=== PATIENT | female | born 1940 | race Caucasian/White ===

== ENCOUNTER → 2019-01-16 | Outpatient (CLI) | payer OTHER ==
[~2019-01-16] MED LIST: ACET325 PO; AMLO5 PO; ASPI325 PO; ATOR20 PO; CARV3.125 PO; CEFD300 PO; DIGO.125 PO; DOCU100 PO; ELIQUIS2.5 MG PO; ERGO400 PO; FENO145 PO; FISH1000 PO; FLUO10 PO; FURO20 PO; FURO40 PO; GABA300 PO; HYDCHL25 PO; HYDURE500 PO; Hydrochlorothia25 MG PO; INSULANPEN SC; LANOXIN250 MCG PO; LEVSOD125 PO; LISI20 PO; LISI5 PO; LORA.5 PO; METO100ER PO; METO50 PO; NAMZARIC 28 MG1 EACH PO; NYST100P TOP; Norco 5-325 Ta1 EACH PO; ONDA4ODT MM; OXYC5 PO; POTCHL20ER PO; PRAV20 PO; SITA100T2 PO; Super Calcium600 MG PO; THERA1 EACH PO; TOCO1000 PO; TRAZ100 PO; WARF3 PO; WARF5 PO; Woman's Laxative5 MG PO
[2019-01-16 10:36] LABS: Bilirubin, Urine Neg (Neg); Blood, Urine Neg (Neg); Glucose Qualitative, Urine Neg (Neg); Ketones, Urine Neg (Neg); Leukocyte Esterase, Urine Neg (Neg); Nitrite, Urine Neg (Neg); Protein, Urine 2+ (Neg); Urobilinogen, Urine NORM (Normal)
[2019-01-16 10:41] LABS: Appearance, Urine Clear (Clear); Color, Urine Yellow (P-Yellow)
[2019-01-16 10:42] LABS: Bacteria Mod /hpf; Mucus Light (0-Heavy); Red Blood Cells, Urine Not Seen /hpf (0-2); Squamous Epithelial Cells Few /hpf (Few)
== END | disposition home or self-care (01) ==
LOC: LAB SHORT 10:22 → LAB 10:22
PROVIDERS: Nurse Practitioner Family
DX: R82.90 Unspecified abnormal findings in urine (principal)
CPT/HCPCS: 81001; 87077; 87086; 87186

== ENCOUNTER → 2019-03-02 | Outpatient (CLI) | payer OTHER ==
[2019-03-02 14:41] LABS: BASOPHILS PERCENT AUTO 1 % (0-2); EOSINOPHILS ABSOLUTE AUTO 0.04 K/mm3 (0.00-0.68); EOSINOPHILS PERCENT AUTO 0 % (0-6); Hematocrit 44.7 % (33.0-51.0); Hemoglobin 14.1 g/dL (11.5-16.0); IMMATURE GRAN ABSOLUTE AUTO 0.26 K/mm3 (0.00-0.10); IMMATURE GRAN PERCENT AUTO 2 % (0-1); LYMPHOCYTES ABSOLUTE AUTO 1.32 K/mm3 (0.84-5.20); LYMPHOCYTES PERCENT AUTO 7 % (21-46); MONOCYTES PERCENT AUTO 4 % (4-13); Mean Corpuscular HGB 29.4 pg (26.0-34.0); Mean Corpuscular HGB Conc 31.5 g/dL (31.5-36.5); Mean Corpuscular Volume 93 fL (80-100); Mean Platelet Volume 11.1 fL (9.1-12.4); NEUTROPHILS ABSOLUTE AUTO 15.24 K/mm3 (1.96-9.15); NEUTROPHILS PERCENT AUTO 86 % (41-73); Platelet Count 583 K/mm3 (150-400); RDW Coefficient Variation 17.4 % (11.7-14.2); RDW Standard Deviation 58.4 fL (35.1-46.3); White Blood Cell Count 17.76 K/mm3 (4.00-11.30)
[2019-03-02 14:52] LABS: Albumin, Blood 2.9 g/dL (3.4-5.0); Albumin/Globulin Ratio 0.7 (0.8-1.8); Bilirubin, Total 0.9 mg/dL (0.1-1.0); Bun/Creatinine Ratio 16.9 (12.0-20.0); Calcium, Blood 8.6 mg/dL (8.5-10.1); Creatinine, Blood 1.24 mg/dL (0.40-1.00); Globulin, Blood 4.3 g/dL (2.2-4.0); Potassium, Blood 3.9 mmol/L (3.5-5.5); Total Protein, Blood 7.2 g/dL (6.4-8.2)
== END | disposition home or self-care (01) ==
LOC: LAB SHORT 14:37 → LAB EV 14:37
PROVIDERS: Family Medicine
DX: R42 Dizziness and giddiness (principal); R82.90 Unspecified abnormal findings in urine
CPT/HCPCS: 80053; 85025; 87086

== ENCOUNTER → 2019-03-05 | Outpatient (CLI) | payer OTHER ==
[2019-03-05 10:51] LABS: BASOPHILS ABSOLUTE AUTO 0.34 K/mm3 (0.00-0.23); BASOPHILS PERCENT AUTO 3 % (0-2); EOSINOPHILS ABSOLUTE AUTO 0.13 K/mm3 (0.00-0.68); EOSINOPHILS PERCENT AUTO 1 % (0-6); Hematocrit 45.6 % (33.0-51.0); Hemoglobin 14.3 g/dL (11.5-16.0); IMMATURE GRAN ABSOLUTE AUTO 0.19 K/mm3 (0.00-0.10); IMMATURE GRAN PERCENT AUTO 2 % (0-1); LYMPHOCYTES ABSOLUTE AUTO 1.19 K/mm3 (0.84-5.20); LYMPHOCYTES PERCENT AUTO 9 % (21-46); MONOCYTES ABSOLUTE AUTO 0.57 K/mm3 (0.16-1.47); MONOCYTES PERCENT AUTO 5 % (4-13); Mean Corpuscular HGB 29.1 pg (26.0-34.0); Mean Corpuscular HGB Conc 31.4 g/dL (31.5-36.5); Mean Corpuscular Volume 93 fL (80-100); Mean Platelet Volume 11.1 fL (9.1-12.4); NEUTROPHILS ABSOLUTE AUTO 10.25 K/mm3 (1.96-9.15); Platelet Count 582 K/mm3 (150-400); RDW Coefficient Variation 17.2 % (11.7-14.2); RDW Standard Deviation 57.4 fL (35.1-46.3); Red Blood Cell Count 4.92 M/mm3 (3.80-5.20); White Blood Cell Count 12.67 K/mm3 (4.00-11.30)
[2019-03-05 11:08] LABS: Albumin, Blood 2.9 g/dL (3.4-5.0); Albumin/Globulin Ratio 0.6 (0.8-1.8); Bilirubin, Total 0.6 mg/dL (0.1-1.0); Bun/Creatinine Ratio 19.8 (12.0-20.0); Calcium, Blood 8.6 mg/dL (8.5-10.1); Creatinine, Blood 1.06 mg/dL (0.40-1.00); Globulin, Blood 4.5 g/dL (2.2-4.0); Potassium, Blood 4.2 mmol/L (3.5-5.5); Total Protein, Blood 7.4 g/dL (6.4-8.2)
[2019-03-05 14:07] LABS: NEUTROPHILS PERCENT AUTO 81 % (41-73)
== END | disposition home or self-care (01) ==
LOC: LAB EV 10:41 → LAB SHORT 10:41
PROVIDERS: Physician Assistant
DX: R42 Dizziness and giddiness (principal); D72.829 Elevated white blood cell count, unspecified
CPT/HCPCS: 80053; 83880; 85025; 85060

== ENCOUNTER 2019-03-06 10:03 | Observation (INO) | payer OTHER ==
[~2019-03-06] VITALS: Ht 157.5 cm; Wt 71.1 kg
[~2019-03-06 10:03] MED LIST changes: -ACET325 PO; -CEFD300 PO; -ELIQUIS2.5 MG PO; -ERGO400 PO; -GABA300 PO; -HYDURE500 PO; -LEVSOD125 PO; -LORA.5 PO; -NAMZARIC 28 MG1 EACH PO; -OXYC5 PO; -THERA1 EACH PO
[2019-03-06] MEDS ORDERED: LEVSOD125 PO (10:21)
[2019-03-06] MEDS ORDERED: CEFD300 PO (10:25)
[2019-03-06 10:26] LABS: BASOPHILS ABSOLUTE AUTO 0.28 K/mm3 (0.00-0.23); BASOPHILS PERCENT AUTO 1 % (0-2); EOSINOPHILS ABSOLUTE AUTO 0.11 K/mm3 (0.00-0.68); EOSINOPHILS PERCENT AUTO 1 % (0-6); Hematocrit 45.4 % (33.0-51.0); Hemoglobin 14.1 g/dL (11.5-16.0); IMMATURE GRAN ABSOLUTE AUTO 0.25 K/mm3 (0.00-0.10); IMMATURE GRAN PERCENT AUTO 1 % (0-1); LYMPHOCYTES ABSOLUTE AUTO 1.28 K/mm3 (0.84-5.20); LYMPHOCYTES PERCENT AUTO 6 % (21-46); MONOCYTES ABSOLUTE AUTO 0.87 K/mm3 (0.16-1.47); MONOCYTES PERCENT AUTO 4 % (4-13); Mean Corpuscular HGB 28.7 pg (26.0-34.0); Mean Corpuscular HGB Conc 31.1 g/dL (31.5-36.5); Mean Corpuscular Volume 93 fL (80-100); Mean Platelet Volume 11.2 fL (9.1-12.4); NEUTROPHILS ABSOLUTE AUTO 17.58 K/mm3 (1.96-9.15); NEUTROPHILS PERCENT AUTO 86 % (41-73); Platelet Count 650 K/mm3 (150-400); RDW Coefficient Variation 17.2 % (11.7-14.2); RDW Standard Deviation 57.1 fL (35.1-46.3); Red Blood Cell Count 4.91 M/mm3 (3.80-5.20); White Blood Cell Count 20.37 K/mm3 (4.00-11.30)
[2019-03-06] MEDS ORDERED: HYDURE500 PO (10:26)
[2019-03-06] MEDS ORDERED: TRAZ100 PO (10:28)
[2019-03-06] MEDS ORDERED: GABA300 PO (10:28)
[2019-03-06] MEDS ORDERED: ELIQUIS2.5 MG PO (10:30)
[2019-03-06] MEDS ORDERED: NAMZARIC 28 MG1 EACH PO (10:30)
[2019-03-06 10:38] LABS: Alanine Aminotransfer (ALT/SGP 20 U/L (12-78); Albumin, Blood 2.9 g/dL (3.4-5.0); Albumin/Globulin Ratio 0.7 (0.8-1.8); Alk Phos 109 U/L (50-136); Anion Gap 4 mmol/L (6-16); Aspartate Aminotrans (AST/SGOT 27 U/L (12-37); Bilirubin, Total 0.8 mg/dL (0.1-1.0); Blood Urea Nitrogen 19 mg/dL (8-24); Bun/Creatinine Ratio 23.2 (12.0-20.0); CO2, Blood 28 mmol/L (21-32); Calcium, Blood 8.6 mg/dL (8.5-10.1); Chloride, Blood 107 mmol/L (98-108); Creatinine, Blood 0.82 mg/dL (0.40-1.00); Globulin, Blood 4.3 g/dL (2.2-4.0); Glomerular Filtration Rate >60 (60-); Glucose, Blood 135 mg/dL (70-99); Potassium, Blood 4.3 mmol/L (3.5-5.5); Sodium, Blood 139 mmol/L (136-145); Total Protein, Blood 7.2 g/dL (6.4-8.2)
[2019-03-06 10:53] LABS: Source, Urine Catheter
[2019-03-06 10:58] LABS: Bilirubin, Urine Neg (Neg); Blood, Urine 1+ (Neg); Glucose Qualitative, Urine Neg (Neg); Ketones, Urine Neg (Neg); Leukocyte Esterase, Urine Neg (Neg); Nitrite, Urine Neg (Neg); Protein, Urine 3+ (Neg); Specific Gravity, Urine 1.015 (1.003-1.022); Urobilinogen, Urine NORM (Normal); pH, Urine 6.5 (5.0-8.0)
[2019-03-06 11:15] LABS: Appearance, Urine Clear (Clear); Color, Urine Yellow (P-Yellow); Red Blood Cells, Urine 0-2 /hpf (0-2); White Blood Cells, Urine 0-2 /hpf (0-5)
[2019-03-06 11:16] LABS: Bacteria Few /hpf; Mucus Light (0-Heavy); Squamous Epithelial Cells Rare /hpf (Few)
[2019-03-06 11:19] LABS: Digoxin (Lanoxin) 1.58 ug/mL (0.80-2.00)
[2019-03-06] MEDS ORDERED: ERGO400 PO (13:56)
[2019-03-06] MEDS ORDERED: THERA1 EACH PO (13:56)
[2019-03-06] MEDS ORDERED: ACET325 PO (13:59)
--- NOTE | 2019-03-06 15:13 | NUR ---
Pt arrived to the room. She is alert, but not oriented completely. Oriented to person, and to the fact that she is in the hospital. Cannot give the day of the week, the date, nor any reason for why she is in the hospital, although she states that she has been here often. States very very painful on her right side. Hardened lump noted on the right flank, which she states is painful to even very soft touch. NO bruising noted. she is unable to roll on to her right side due to the pain. Incontinence of urine noted in attends; attends change and monty care done upon arrival from ED. She is otherwise pleasant, conversant, and in no apparent distress, without any dificulty breathing noted. Appears a little bit tearful.
--- NOTE | 2019-03-06 16:05 | NUR ---
The pt's bladder scan was 887. She was assisted to the bedside commode (she stated no urge no void), and voided 150 cc yellow urine.
[2019-03-06 18:16] LABS: Source, Urine Catheter
[2019-03-06 18:20] LABS: Bilirubin, Urine Neg (Neg); Blood, Urine Neg (Neg); Glucose Qualitative, Urine Neg (Neg); Ketones, Urine 1+ (Neg); Leukocyte Esterase, Urine Neg (Neg); Nitrite, Urine Neg (Neg); Protein, Urine 2+ (Neg); Specific Gravity, Urine 1.015 (1.003-1.022); Urobilinogen, Urine NORM (Normal)
--- NOTE | 2019-03-06 18:27 | NUR ---
family came in to visit stated that pt had a POLST and that she wanted to be DNR, they promised to bring in a copy of the POLST, called dr who agreed to change the code to DNR, also reported that after the bladder scan a straight cath was done that only yielded 100 cc, called in other RN to verify placement, tried to reposition pt and cath, no more urine, when dr was informed he stated that their was a cyst that the scanner could be mistaking for the bladder and recommended dc'ing the bladder scan order but to continue to monitor he in/out closely, family stayed and assisted pt with dinner then left promising to return with the polst. pt resting quietly in bed in low position, call light in reach, alarm and skds on, rm air, saline locked, will continue to monitor and treat until SBAR report supplied to assistant casino shift manager.
[2019-03-06 18:41] LABS: Appearance, Urine Clear (Clear); Color, Urine Yellow (P-Yellow)
[2019-03-06 18:43] LABS: Red Blood Cells, Urine 0-2 /hpf (0-2); White Blood Cells, Urine 0-2 /hpf (0-5)
[2019-03-06 18:44] LABS: Bacteria Few /hpf; Squamous Epithelial Cells Not Seen /hpf (Few)
--- NOTE | 2019-03-06 18:47 | NUR ---
due to possible false reading of a full bladder when scanning pt has dc'd the st cath and bladder scan order and just requested close monitoring of pt i/o's
[2019-03-07 04:21] LABS: BASOPHILS ABSOLUTE AUTO 0.26 K/mm3 (0.00-0.23); BASOPHILS PERCENT AUTO 1 % (0-2); EOSINOPHILS ABSOLUTE AUTO 0.03 K/mm3 (0.00-0.68); EOSINOPHILS PERCENT AUTO 0 % (0-6); Hematocrit 42.3 % (33.0-51.0); Hemoglobin 12.9 g/dL (11.5-16.0); IMMATURE GRAN ABSOLUTE AUTO 0.38 K/mm3 (0.00-0.10); IMMATURE GRAN PERCENT AUTO 2 % (0-1); LYMPHOCYTES ABSOLUTE AUTO 1.27 K/mm3 (0.84-5.20); LYMPHOCYTES PERCENT AUTO 6 % (21-46); MONOCYTES ABSOLUTE AUTO 1.12 K/mm3 (0.16-1.47); MONOCYTES PERCENT AUTO 5 % (4-13); Mean Corpuscular HGB 28.2 pg (26.0-34.0); Mean Corpuscular HGB Conc 30.5 g/dL (31.5-36.5); Mean Corpuscular Volume 93 fL (80-100); Mean Platelet Volume 11.3 fL (9.1-12.4); NEUTROPHILS PERCENT AUTO 85 % (41-73); Platelet Count 671 K/mm3 (150-400); RDW Coefficient Variation 17.5 % (11.7-14.2); RDW Standard Deviation 58.7 fL (35.1-46.3); Red Blood Cell Count 4.57 M/mm3 (3.80-5.20); White Blood Cell Count 20.76 K/mm3 (4.00-11.30)
[2019-03-07 04:33] LABS: International Normalized Ratio 1.14; Prothrombin Time Results 11.9 Sec (9.7-11.5)
--- NOTE | 2019-03-07 04:38 | NUR ---
ASSUMED CARE APPROXIMATELY 1909; PT IS ALERT AND PLEASANT; HOWEVER IS FORGETFUL AT TIMES; PT STATES OFTEN THAT SHE DOES NOT FEEL GOOD AND DOES NOT KNOW WHY, NOR DOES SHE KNOW WHY SHE IS IN THE HOSPITAL; PT HAD A HEADACHE AND SEVERE PAIN IN R HIP AREA FROM [place], IS QUITE TENDER; REPOSITIONED AND MEDICATED PER ORDERS; PT REFUSES TURNS TO RIGHT SIDE DUE TO PAIN ON THAT AFFECTED SIDE; BSC W/ TWO NURSES, HOWEVER PT WAS EXCESSIVELY WEAK AND STATED SHE HAS NOT BEEN THIS WEAK BEFORE; ONCALL PROVIDER WAS NOTIFIED AT 2128 OF CBG OF 199 W/ CONCERN OF INSULIN ORDER OF 30 U LANTUS SINCE PT WAS NOT GOING TO BE EATING IN THE NIGHT; ORDER WAS ADJUSTED FOR ONE TIME 25 U LANTUS AND ORDER TO RECHECK CBG AT 0300; AT 0300 RESULT WAS 143; PT SLEPT IN BETWEEN INTERVENTIONS; CALL LIGHT W/IN REACH, BED IN LOWEST POSITION; BED ALARM ON; WILL CONTINUE TO MONITOR AND ASSESS UNTIL HAND OFF TO DAY SHIFT RN.
[2019-03-07 04:46] LABS: Albumin, Blood 2.6 g/dL (3.4-5.0); Albumin/Globulin Ratio 0.6 (0.8-1.8); Bilirubin, Total 0.7 mg/dL (0.1-1.0); Bun/Creatinine Ratio 29.4 (12.0-20.0); Calcium, Blood 8.8 mg/dL (8.5-10.1); Creatinine, Blood 1.02 mg/dL (0.40-1.00); Globulin, Blood 4.2 g/dL (2.2-4.0); Potassium, Blood 4.2 mmol/L (3.5-5.5); Total Protein, Blood 6.8 g/dL (6.4-8.2)
--- NOTE | 2019-03-07 10:02 | NUR ---
POLST form was provided to us by Naz, and copy was made in the chart. Dr. Land here to see the patient, talking to Naz daughter of patient regarding discontinuation of blood thinners due to her risk of bleeding, falls, frail condition and underlying comorbidities. Also discussing termination clerk plan at this time.
--- NOTE | 2019-03-07 12:02 | NUR ---
Caregiver's Bill here to evaluate the pt's transfer from bed to chair and vice versa; The pt was able to do this independently while he watched. Daughter Naz states that they have decided to take the pt home on hospice.
--- NOTE | 2019-03-07 12:16 | NUR ---
INITIAL PAL CARE VISIT: CALLED TO ROOM BY , WHO REPORTS PT MAY BE D/C'D TODAY IF [facility] ARE ABLE TO ACCEPT HER BACK TO [facility] WHERE SHE HAS LIVED PRIOR TO ADMISSION. UPON ENTERING ROOM, PT ASLEEP, LYING ON HER LEFT SIDE. SHE DID NOT WAKE T/O THE LENGHTY PERIOD I WAS IN THE ROOM, EVEN WHEN I WENT OVER TO ASSESS AND PLACED MY HAND ON HER SHOULDER. [facility] CG CALLED IN TO ASSESS IF SHE COULD RETURN. WE DISCUSSED AT LENT HER PRIOR LEVEL OF FUNCTION AND GRADUAL DECLINE IN ADL'S, SELF CARE, MOBILITY AND NUTRITION OVER SEVERAL MONTHS. PT HAS END STAGE DEMENTIA AND ALSO HAS PMH OF AFIB, CHRONIC DIASTOLIC HF, CKD STAGE 3, HTN, CHRONIC R OVARIAN CYST. CURRENTLY PT ADMITTED WITH R ABD WALL HEMATOMA AND PLAN IS TO D/C ELIQUIS DUE TO INCREASED BLEEDING. PT HAS R FLANK PAIN AND C/O JACOBS OR RIGHT HIP AND SIDE PAIN PER [facility]. HER ALZ DEMENTIA IS ADVANCED PER EMR. 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 HER KPS SCORE IS CURRENTLY 30%. DISCUSSED GOALS OF CARE WITH ESTEBAN AND CG. ESTEBAN BROUGHT A POLST IN WHICH WAS COPIED AND FAXED TO [facility]. IT STATES DNR, COMFORT MEASURES ONLY. THESE ORDERS WERE NOTED BY . DISCUSSED SUPPORTIVE COMFORT CARE AT HOME WITH HOSPICE INVOLVEMENT. FCP CONSULTED HIS WHO IS THE PRIMARY AUTOMATION APPLICATION ENGINEER IN THE [employer] AND THEY HAVE REQUESTED [facility]. I WILL SEND NOTES TO THEM. HOSPICE ORDER AND NOTES FOR CM F/U ON SATURDAY ENTERED. RN INCLUDED IN THE PLANNING AND CONVERSATION. CALL TO WITH RESULTS OF CONSULT AND FAMILY/CG REQUEST. PT IS BEING ALLOWED TO RETURN TO SAME PER APPROVAL OF [facility] TODAY. THEY UNDERSTAND THAT HOSPICE MAY NOT SEE THEM UNTIL MID TO LATE IN THE NEXT WEEK AND THEY ARE COMFORTABLE WITH PT'S CARE NEEDS FOR THAT TIME. PT'S ESTEBAN AND ADRIAN LIVE LOCALLY AND VISIT PT AT FREQUENTLY. FAMILY AND TWO FCP'S APPEAR TO HAVE A GOOD RAPPORT AND TO WORK WELL TOGETHER TO MEET PT'S CARE NEEDS.
[2019-03-07] MEDS ORDERED: OXYC5 PO (13:07)
[2019-03-07] MEDS ORDERED: LORA.5 PO (13:08)
--- NOTE | 2019-03-07 15:13 | NUR ---
sitting up in chair waiting for daughter, assisted into wc, stated she did not think she could make it when half way there, assisted into wc, reviewed with daughter and pt medications, percautions, restrictions, recommendations and safety, daughter signed acknowlegement and pushed mom's wc down the mata, iv and tele had been removed
== END 2019-03-07 14:03 | disposition home or self-care (01) ==
LOC: ER 10:03 → PCU 10:04 → ER 13:53 → PCU 13:53
PROVIDERS: Emergency Medicine; ADMIT Internal Medicine
DX: M79.81 Nontraumatic hematoma of soft tissue (principal); T45.515A Adverse effect of anticoagulants, initial encounter; I48.2 Chronic atrial fibrillation; I13.0 Hypertensive heart and chronic kidney disease with heart failure and stage 1 through stage 4 chronic kidney disease, or unspecified chronic kidney disease; E11.22 Type 2 diabetes mellitus with diabetic chronic kidney disease; N18.3 Chronic kidney disease, stage 3 (moderate); I50.32 Chronic diastolic (congestive) heart failure; N83.201 Unspecified ovarian cyst, right side; D47.3 Essential (hemorrhagic) thrombocythemia; D72.829 Elevated white blood cell count, unspecified; G30.9 Alzheimer's disease, unspecified; F02.80 Dementia in other diseases classified elsewhere, unspecified severity, without behavioral disturbance, psychotic disturbance, mood disturbance, and anxiety; E03.9 Hypothyroidism, unspecified; E78.5 Hyperlipidemia, unspecified; Z86.73 Personal history of transient ischemic attack (TIA), and cerebral infarction without residual deficits; Z79.02 Long term (current) use of antithrombotics/antiplatelets; Z79.4 Long term (current) use of insulin; Z79.899 Other long term (current) drug therapy
CPT/HCPCS: 36415; 51701; 71046; 74176; 80053; 80162; 81001; 82947; 85025; 85610; 93005; 93010; 96374; 97110; 97162; 97530; 99285-25; G0378; J0360; J2405; P9612